=== PATIENT | female | born 1955 | race Caucasian/White ===

== ENCOUNTER → 2018-05-08 | Outpatient (CLI) | payer OTHER ==
[2018-05-08 12:46] LABS: BASOPHILS # (AUTO) 0.04 x10^3/uL (0-0.1); BASOPHILS % (AUTO) 1 % (0-1); EOSINOPHILS # (AUTO) 0.67 x10^3/uL (0-0.4); EOSINOPHILS % (AUTO) 12 % (1-7); LYMPHOCYTES # (AUTO) 1.34 x10^3/uL (1-3.4); LYMPHOCYTES % (AUTO) 25 % (22-44); MD NO; MEAN CORPUSCULAR HEMOGLOBIN 31.6 pg (27.0-34.8); MEAN CORPUSCULAR VOLUME 93.1 fL (80-100); MEAN PLATELET VOLUME 9.4 fL (7.4-10.4); MONOCYTES # (AUTO) 0.45 x10^3/uL (0.2-0.8); MONOCYTES % (AUTO) 8 % (2-9); NEUTROPHILS # (AUTO) 2.93 x10^3/uL (1.8-6.8); NEUTROPHILS % (AUTO) 54 % (42-75); PLATELET COUNT 185 x10^3/uL (130-400); RED BLOOD COUNT 4.17 x10^6/uL (3.82-5.3); RED CELL DISTRIBUTION WIDTH 13.4 % (9.6-15.2)
[2018-05-08 12:47] LABS: MICROSCOPIC NOT IND
[2018-05-08 12:53] LABS: CULTURE INDICATED? NO
[2018-05-08 13:02] LABS: ANION GAP 4 mmol/L (5-15); CALCIUM 8.8 mg/dL (8.5-10.1); CHLORIDE 111 mmol/L (98-107); CREATININE 1.05 mg/dL (0.55-1.02)
[2018-05-08 13:03] LABS: INTERNATIONAL NORMALIZED RATIO 0.99 (0.93-1.1); PROTHROMBIN TIME 10.2 Seconds (9.6-11.5)
[2018-05-08 13:29] LABS: HEMOGLOBIN A1C 5.7 % (4.2-6.3)
== END | disposition home or self-care (01) ==
LOC: STAR 11:29
PROVIDERS: ATTEND Orthopaedic Surgery
DX: Z01.818 Encounter for other preprocedural examination (principal); M17.11 Unilateral primary osteoarthritis, right knee
CPT/HCPCS: 36415; 80048; 81003; 83036; 85025; 85610; 85730; 87081; 87147; 87806; 93005; G0475

== ENCOUNTER 2018-05-15 05:38 | Observation (INO) | payer OTHER ==
[~2018-05-15] VITALS: Ht 160 cm; Wt 66.0 kg
[2018-05-15] MEDS ORDERED: LACTATED RINGERS 1,000 ML IV SCH (06:20)
[2018-05-15] MEDS ORDERED: ACETAMINOPHEN 500 MG TABLET PO ONE ×2 (06:30→07:00)
[2018-05-15] MEDS ORDERED: GABAPENTIN 300 MG CAPSULE PO ONE ×2 (06:30→07:00)
[2018-05-15] MEDS ORDERED: GABAPENTIN 300 MG CAPSULE ONE (06:39)
[2018-05-15] MEDS ORDERED: ACETAMINOPHEN 500 MG TABLET ONE (06:39)
[2018-05-15] MEDS ORDERED: ROPIvacaine/PF 0.2%, 20 ML ONE (06:53)
[2018-05-15] MEDS ORDERED: EPINEPHRINE 1 MG/ML, 1ML ONE (06:53)
[2018-05-15] MEDS ORDERED: KETOROLAC 60 MG/2 ML ONE (06:53)
[2018-05-15] MEDS ORDERED: TRANEXAMIC ACID 100 MG/ML, 10ML ONE ×4 (06:53)
[2018-05-15] MEDS ORDERED: SCOPOLAMINE PATCH, 1.5MG PATCH.TD72 TD ONE (07:00)
[2018-05-15] MEDS ORDERED: MIDAZOLAM 1 MG/ML, 2ML ONE (07:03)
[2018-05-15] MEDS ORDERED: FENTANYL PF 100 MCG/2ML ONE (07:04)
[2018-05-15] MEDS ORDERED: D5%-0.45NACL+KCL 20MEQ 1,000 ML IV SCH (07:07)
[2018-05-15] MEDS ORDERED: PROPOFOL 50 ML ONE (07:07)
[2018-05-15] MEDS ORDERED: ROCURONIUM 10MG/ML,5ML ONE (07:24)
[2018-05-15] MEDS ORDERED: PROPOFOL 10 MG/ML, 20ML ONE (07:24)
[2018-05-15] MEDS ORDERED: CEFAZOLIN 1,000 MG ONE ×2 (07:29)
[2018-05-15] MEDS ORDERED: DEXAMETHASONE 4 MG/ML, 1ML ONE ×4 (07:29→09:13)
[2018-05-15] MEDS ORDERED: TRANEXAMIC ACID 1,000 MG in SODIUM CHLORIDE 0.9% 100 ML IVPB ONE (07:30)
[2018-05-15] MEDS ORDERED: CEFAZOLIN PMX 1GM/50ML 50 ML IVPB SCH (07:30)
[2018-05-15] MEDS ORDERED: DIPHENHYDRAMINE 50 MG CAPSULE PO PRN (07:30)
[2018-05-15] MEDS ORDERED: OXYcodone IR 5MG TABLET PO PRN (07:30)
[2018-05-15] MEDS ORDERED: ONDANSETRON 2MG/ML, 2ML IV PRN (07:30)
[2018-05-15] MEDS ORDERED: SENNA/DOCUSATE TABLET PO PRN (07:30)
[2018-05-15] MEDS ORDERED: HYDROmorphone 1 MG/ML, 1ML IV PRN ×2 (07:30→08:30)
[2018-05-15] MEDS ORDERED: ONDANSETRON 4 MG TABLET PO PRN (07:30)
[2018-05-15] MEDS ORDERED: ALUMINUM/MAG/SIMETHICONE 30 ML UDC PO PRN (07:30)
[2018-05-15] MEDS ORDERED: ACETAMINOPHEN 650 MG/20.3 ML UDC PO PRN (07:30)
[2018-05-15] MEDS ORDERED: MAGNESIUM HYDROXIDE 8%, 30ML UDC PO PRN (07:30)
[2018-05-15] MEDS ORDERED: FENTANYL PF 250 MCG/5ML ONE (07:36)
[2018-05-15] MEDS ORDERED: ONDANSETRON 2MG/ML, 2ML ONE ×2 (07:57)
[2018-05-15] MEDS ORDERED: hydrALAzine 20 MG/ML, 1ML IV PRN (08:30)
[2018-05-15] MEDS ORDERED: OXYcodone 5 MG/5 ML ORAL.SOL UDC PO PRN (08:30)
[2018-05-15] MEDS ORDERED: LABETALOL 5MG/ML, 20ML IV PRN (08:30)
[2018-05-15] MEDS ORDERED: FENTANYL PF 100 MCG/2ML IV PRN (08:30)
[2018-05-15] MEDS ORDERED: HALOPERIDOL 5 MG/ML IV PRN (08:30)
[2018-05-15] MEDS ORDERED: PROMETHAZINE 12.5 MG SUPP PR PRN (08:30)
[2018-05-15] MEDS ORDERED: MEPERIDINE/PF 25MG/0.5ML IVPush PRN (08:30)
[2018-05-15] MEDS ORDERED: GLYCOPYRROLATE 0.4 MG/2 ML, 2ML ONE (08:32)
[2018-05-15] MEDS ORDERED: NEOSTIGMINE 1 MG/ML, 10ML ONE (08:32)
[2018-05-15] MEDS ORDERED: DOCUSATE 100 MG CAPSULE PO SCH (09:00)
[2018-05-15] MEDS ORDERED: MEPERIDINE/PF 50 MG/ML ONE (09:27)
[2018-05-15] MEDS ORDERED: OXYcodone 5 MG/5 ML ORAL.SOL UDC ONE (09:27)
[2018-05-15 12:30] VITALS: BP 104/66
[2018-05-15] MEDS ORDERED: OXYC5CAP2 PO (13:41)
[2018-05-15] MEDS ORDERED: ASPI-621 PO (13:41)
[2018-05-15] MEDS ORDERED: TRAM50TA2 PO (13:41)
[2018-05-15] MEDS ORDERED: DOCU-131 PO (13:41)
[2018-05-15] MEDS ORDERED: CELE200C PO (13:41)
[2018-05-15] MEDS ORDERED: ONDA4TAB10 PO (13:41)
[2018-05-15] MEDS ORDERED: TAMSULOSIN 0.4 MG CAP.ER.24H PO ONE (14:00)
[2018-05-15] MEDS ORDERED: ASPIRIN 81 MG TABLET EC PO SCH (18:00)
[2018-05-16] MEDS ORDERED: DEXAMETHASONE 4 MG/ML, 1ML IVPush SCH (06:00)
[2018-05-16] MEDS ORDERED: KETOROLAC 30 MG/1 ML IV SCH (07:30)
== END 2018-05-15 14:04 | disposition home or self-care (01) ==
LOC: EDBD → OUT 05:38 → ORIP 07:07 → 4NOR 10:08 → EDSTATUS 11:00 → DCLOUNGE 13:55
PROVIDERS: ADMIT Orthopaedic Surgery; ATTEND Orthopaedic Surgery
DX: M17.11 Unilateral primary osteoarthritis, right knee (principal)
CPT/HCPCS: 27447; 73560; 97110; 97161; C1713; C1776; G0378; G8978; G8979; G8980; J0171; J0690; J1100; J1885; J2175; J2250; J2405; J2704; J2710; J2795; J3010; J7120